=== PATIENT | male | born 1960 | race Hispanic/Latino ===

== ENCOUNTER 2019-10-02 00:45 | Emergency (ER) | payer MEDICAID, SELFPAY ==
[2019-10-02 00:48] VITALS: BP 144/86; PULSE 86; RESP 20; TEMP 36.3; O2SAT 97
--- NOTE | 2019-10-02 00:49 | ED_ITS ---
I attest that this documentation has been prepared under the direction and in the presence of Mike Paula MD. Miri Cagle, Lorenzaibtamiko 10/02/19;00:56 HPI - Wound/Laceration General Chief Complaint: Wound/Laceration Stated Complaint: R 5th digit lac Time Seen by Provider: 10/02/19 00:48 Source: patient Mode of arrival: ambulatory Limitations: no limitations History of Present Illness HPI narrative: A 59 y/o male presents to the ED with c/o a laceration to his right 5th finger. 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 Pt has bandaged the area but has been unable to stop the bleeding. Pt is unsure if his tetanus immunization is UTD. He denies numbness/tingling and being on a blood thinner. Extremity Location: Right: hand (fifth finger) Context: accidental Treatments prior to arrival: bandage Related Data Allergies Allergy/AdvReac Type Severity Reaction Status Date / Time No Known Allergies Allergy Verified 10/02/19 00:54 Review of Systems Review of Systems: All systems reviewed & are unremarkable except as noted in HPI and below Musculoskeletal: Comments: Reports: laceration to right fifth finger with bleeding Neurologic: Comments: Denies: numbness/tingling PMFSH Past Medical History Medical History Cancer of right kidney Kidney stone Rib fracture Surgical History Surgical History H/O right nephrectomy Social History Social History (Updated 10/02/19 @ 00:55 by Miri Cagle) Smoking status: Never smoker Comments PCP: Dr. Blackwell Exam Const: General: no acute distress and alert Orientation/consciousness: patient oriented x3 HENMT: Head: normal to inspection Resp: Effort & Inspection: normal respiratory effort Skin: Other: 2 cm partial skin avusion to right 5th finger. Bleeding controlled Neuro: General: patient oriented x3 and moves all extremities Speech: normal speech Course Vital Signs Vital signs: Vital Signs Temperature 36.3 C L 10/02/19 00:48 Pulse Rate 86 10/02/19 00:48 Respiratory Rate 20 10/02/19 00:48 Blood Pressure 144/86 H 10/02/19 00:48 Pulse Oximetry 97 10/02/19 00:48 Temperature 36.3 C L 10/02/19 00:48 Pulse Rate 86 10/02/19 00:48 Respiratory Rate 20 10/02/19 00:48 Blood Pressure 144/86 H 10/02/19 00:48 Pulse Oximetry 97 10/02/19 00:48 MDM - Wound/Laceration MDM Narrative Medical decision making narrative: Bleeding controlled. CUt is very superficial. No benefit to sutures. We will apply a pressure dressing. Unknown last tetanus we will update his tetanus shot. Differential Diagnosis Differential diagnosis: Likely avulsion of skin Medical Records Attestation: I reviewed the patient's medical records. Discharge Plan Discharge Clinical Impression: Avulsion of skin Patient Disposition: Home, Self-Care Condition: Stable Instructions: Skin Avulsion (ED) Follow-up/Referrals: Andrew Blackwell MD [Primary Care Provider] - I personally performed the services described in this documentation
[2019-10-02] MEDS: TETANUS,DIPHTHERIA,AC PERTUSSIS ADULT 0.5 ML (ADACEL) IM (01:09)
== END 2019-10-02 01:14 | disposition home or self-care (01) ==
PROVIDERS: Emergency Provider Emergency Medicine; PCP Family Medicine Adolescent Medicine
DX: S61.216A Laceration without foreign body of right little finger without damage to nail, initial encounter (principal); Z85.528 Personal history of other malignant neoplasm of kidney; Z90.5 Acquired absence of kidney; Z87.442 Personal history of urinary calculi; Z23 Encounter for immunization; W27.4XXA Contact with kitchen utensil, initial encounter
CPT/HCPCS: 90471; 90715; 99282

== ENCOUNTER 2020-05-10 08:15 | Outpatient (RCR) | payer OTHER, SELFPAY ==
--- NOTE | 2020-02-12 10:13 | PTOPEVAL ---
PHYSICAL THERAPY EVALUATION AND PLAN OF CARE Thank you for referring Carlos Orantes to [facility]. I recommend Carlos participate in PT 1-2x/week for 4-6weeks. Please review, sign, date and return this plan of care ZULEIKA. I agree with and certify that the following plan of care is medically necessary. Referring Physician Date Attending Provider: Andrew Blackwell MD Evaluation Outpatient Past Medical History Genitourinary History Hx Kidney Stones Yes Hx Nephrectomy Yes Musculoskeletal History Hx Back Pain Yes Other History Hx Cancer Yes: kidney Diagnosis low back pain, chronic Subjective Information reports multiple herniated Query Text:As Reported By Patient/ discs, no significant care Family provided up until now. Reports a dull pain that he uses heat on. Reports that several years ago his right thigh went numb and he was provided with steroids which helped. Reports an episode in which he was leaning backwards and his back started to spasm. He used ibuprofen, essential oils, and bengay which all seemed to help. He is feeling pretty good today but he is nervous about causing increased pain. 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 Pain Assessment Timing of Pain Assessment Timing of Pain Assessment Assessment Pain Scale Pain Scale Used Numeric (1 - 10) Self Report Pain Assessment Lower Spine, Lumbar Reported Pain Level 6 Pain Description Aching Pain Frequency Chronic,Continuous Lowest Pain Intensity 4 Greatest Pain Intensity 8 Pain Aggravating Factors Bending,Lifting,Walking,Weight Bearing/Standing Pain Behaviors None Pain Score Pain Score 6: Self Report Cervical and Lumbar ROM Lumbar ROM Lumbar Flexion (0-90) 45 Query Text:Active in Degrees Lumbar Extension (0-40) 8 Query Text:Active in Degrees Lateral Rotation Right (0-45) 30 Query Text:Active in Degrees Lateral Rotation Left (0-45) 30 Query Text:Active in Degrees Lumbar Comments extension and right rotation illicit pain Lower Extremity Range of Motion General Lower
--- NOTE | 2020-02-22 16:44 | PCPTNOTE ---
Patient called & cancelled scheduled appointment for tomorrow as he had to work.
--- NOTE | 2020-03-10 08:28 | PCPTNOTE ---
Patient did not show up for scheduled appointment this date.
--- NOTE | 2020-03-15 08:00 | PCPTNOTE ---
Patient did not show up for scheduled appointment this date.
--- NOTE | 2020-03-29 08:13 | PTOPEVAL ---
PHYSICAL THERAPY PLAN OF CARE UPDATE AND PROGRESS REPORT Thank you for referring Carlos Orantes to [facility].? The patient is scheduled to be seen for therapy? 22x/week for 3weeks. I agree with and certify that the following plan of care is medically necessary. 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 Nothing new to report. Reports that upper back is better, but lower back is stiff today. Self Report Pain Assessment Lower Spine, Lumbar Reported Pain Level 4 Pain Description Aching Pain Frequency Chronic,Continuous Pain Aggravating Factors Bending,Lifting,Walking,Weight Bearing/Standing Pain Behaviors None Cervical and Lumbar ROM Lumbar ROM Lumbar Flexion (0-90) 60 Query Text:Active in Degrees Lumbar Extension (0-40) 13 Query Text:Active in Degrees Lateral Rotation Right (0-45) 35 Query Text:Active in Degrees Lateral Rotation Left (0-45) 35 Query Text:Active in Degrees Lumbar Comments extension and right rotation illicit pain Cervical and Lumbar Muscle Testing Lumbar Strength Upper Abdominal Strength 3-Fair- Lower Abdominal Strength 3-Fair- Lower Back Extension 3+Fair+ Lower Extremity Muscle Strength Testing Hip Strength Bilateral Hip Flexion Strength 5 Normal Hip Extension Strength 4- Good - Hip Abduction Strength 4- Good - Palpation right QL : mild tightness and tenderness noted to right QL; left gluteus medius: moderate trigger points noted spinal mobility: severe decrease in lumbar spine mobility; improved lower thoracic mobility; continues to have positive instability test of lumbar spine Special Test-Spine Lumbar Spine Special Tests Crossed Straight Leg Raise Test Negative Right,Negative Left Straight Leg Raise Test Negative Right,Negative Left Prone Instability Spinal Test Positive Right,Positive Left PT Clinical Summary Carlos is a 59 yo male participating in outpatient
--- NOTE | 2020-04-20 07:35 | PCPTNOTE ---
Extend POC out until 05/10/2020. Scheduling conflicts have limited patient appointments.
--- NOTE | 2020-05-05 17:24 | PCPTNOTE ---
Patient did not show up for scheduled appointment this date. Called and left message of next appointment time.
--- NOTE | 2020-05-10 09:06 | PTOPEVAL ---
PHYSICAL THERAPY PLAN OF CARE UPDATE AND PROGRESS REPORT Thank you for referring Carlos Orantes to [facility].? The patient is scheduled to be seen for therapy?1x/week for 4 weeks. Please review, sign, date and return this plan of care ZULEIKA. I agree with and certify that the following plan of care is medically necessary. Referring Physician Date Attending Provider: Andrew Blackwell MD Progress Diagnosis low back pain, chronic Subjective Information Reports overall feeling Query Text:As Reported By Patient/ improved symptoms. Does Family continue to have fluctuating symptoms of lower back that can be severe. Continues to have goal of feeling better overall and learning how to manage symptoms. He is not consistent with HEP yet. Self Report Pain Assessment Lower Spine, Lumbar Reported Pain Level 2 Pain Description Aching Pain Frequency Chronic,Continuous Pain Aggravating Factors Bending,Lifting,Walking,Weight Bearing/Standing Pain Behaviors None Pain Score Pain Score 2: Self Report Additional Pain Score Comments upper back is doing much better Cervical and Lumbar ROM Lumbar ROM Lumbar Flexion (0-90) 60 Query Text:Active in Degrees Lumbar Extension (0-40) 15 Query Text:Active in Degrees Lateral Rotation Right (0-45) 35 Query Text:Active in Degrees Lateral Rotation Left (0-45) 35 Query Text:Active in Degrees Lumbar Comments no pain reported this morning Lower Extremity Muscle Strength Testing Hip Strength Bilateral Hip Flexion Strength 5 Normal Hip Extension Strength 4+ Good + Hip Abduction Strength 4+ Good + Knee Strength Bilateral Knee Flexion Strength 5 Normal Knee Extension Strength 5 Normal Muscle Length Testing Muscle Length Testing Piriformis w/Hip Flexion >90 Degrees (R) Moderate Tightness,(L) Moderate Tightness Left Hamstring Length -35 Query Text:(90 - 90 Position) Right Hamstring Length -35 Query Text:(90 - 90 Position) Palpation Assessment Palpation Palpation right QL : mild tightness and tenderness noted to right QL; spinal mobility: moderate decrease in lumbar spine mobility; improved lower thoracic mobility Special Test-Spine Lumbar Spine Special Tests Prone Instability Spinal Test Negative Ri
--- NOTE | 2020-05-31 08:32 | PCPTNOTE ---
PHYSICAL THERAPY DISCHARGE Attending Provider: Andrew Blackwell MD Patient:Carlos Orantes Date of :1960 Patient has not returned for any further treatments since 05/10/2020, therefore (he/she) will be discharged at this time. Patient?s initial visit was on 02/12/2020 had a total of 9 visits. The goals have been partially met. Thank you for referring this patient to [facility]. Please review, sign, date and return this discharge summary ZULEIKA. I have been updated about the patient's current status and I agree with discharge from the above service at this time. Referring Physician Date
== END 2020-05-12 23:59 | disposition home or self-care (01) ==
LOC: ANHPT 08:15
PROVIDERS: PCP Family Medicine Adolescent Medicine; Visit Provider Family Medicine Adolescent Medicine
DX: M54.5 Low back pain (principal)
CPT/HCPCS: 97110; 97140; 97161

== ENCOUNTER 2020-10-19 12:30 | Outpatient (RCR) | payer OTHER, SELFPAY ==
--- NOTE | 2020-08-09 15:59 | PTOPEVAL ---
PHYSICAL THERAPY EVALUATION AND PLAN OF CARE Thank you for referring Carlos Orantes to [facility].? The patient is scheduled to be seen for therapy? 2x/week for 5-8 weeks. Please review, sign, date and return this plan of care ZULEIKA. I agree with and certify that the following plan of care is medically necessary. Referring Physician Date Attending Provider: Andrew Blackwell MD Evaluation Diagnosis upper back pain Onset chronic Subjective Information Carlos was here in the fall for Query Text:As Reported By Patient/ the same symptoms. He Family participated in therapy at that time and was independent with HEP and was therefore discharged. His doctor has sent a new order for physical therapy to continue for the same diagnosis. States that since he was here he uses his foam roll to stretch and he uses a mechanical massager from low back to neck. 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 He is occasionally doing cable ferryboat operator work, but is mostly doing house work and cleaning and house projects. Worst days include lower back pain. Upper back is not as much as pain, but it does involve function. His upper back will mostly start hurting when standing still for long periods of time. Self Report Pain Assessment Spine, Thoracic Reported Pain Level 3 Pain Description Tightness Pain Frequency Chronic,Continuous Greatest Pain Intensity 7 Pain Score Pain Score 3: Self Report Interventions Used Interventions Used By Clinicians Exercise Pain Relief Interventions Used By Exercise,Ice,Inactivity/Rest, Patient Massage Modalities Cervical and Lumbar ROM Lumbar ROM Lumbar Flexion Active Ankle Query Text:Hands to: Lumbar Extension (0-40) 14 Query Text:Active in Degrees Lumbar Lateral Flexion Right (0-40) 20 Query Text:Active in Degrees Lumbar Lateral Flexion Left (0-40) 20 Query Text:Active in Degrees Lateral Rotation Right (0-45) 25 Query Text:Active in Degrees Lateral Rotation Left (0-45) 25 Query Text:Active in Degrees Upper Extremity Range of Motion General Upper Extrem
--- NOTE | 2020-08-30 09:30 | PCPTNOTE ---
Patient called & cancelled scheduled appointment this date due to getting testing for COVID.
--- NOTE | 2020-09-13 09:29 | PCPTNOTE ---
Patient called & cancelled scheduled appointment this date due to weather issues.
--- NOTE | 2020-09-23 10:32 | PTOPEVAL ---
PHYSICAL THERAPY RE-ASSESSMENT Thank you for referring Carlos Orantes to [facility].? The patient was re-assessed and further therapy is indicated. The patient is scheduled to continue therapy? 1 x/week for 4 more weeks. Please review, sign, date and return this plan of care ZULEIKA. I agree with and certify that the following plan of care is medically necessary. Referring Physician Date Referring Provider: Andrew Blackwell MD *PT Outpatient Progress Report Start: 08/09/20 14:53 Freq: Status: Active Protocol: Document 09/21/20 14:45 MLV (Rec: 09/23/20 08:02 MLV [email or web address]) Assessment Status Progress Evaluation Information Problem Diagnosis upper back pain Onset chronic Subjective Information Patient reports improvement in Query Text:As Reported By Patient/ his pain since eval and Family understands that stretching helps improve his state. Patient has been doing his exercises 1x a day and reports getting relief of pain. Patient reports pain is mostly at his mid back and standing/ walking slowly will aggravate the pain. 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 The patient feels he would benefit from continued therapy for further stretching and education for home exercises; feels he was set back from being on hold for 2-3 weeks due to COVID quarantine requirements. The pateint missed the last 3 visits due to quarantine issues. Pain Assessment Timing of Pain Assessment Timing of Pain Assessment Assessment Pain Scale Pain Scale Used Numeric (1 - 10) Self Report Pain Assessment Spine, Thoracic Reported Pain Level 4 Pain Description Tightness Pain Frequency Chronic,Continuous Pain Score Pain Score 4: Self Report Interventions Used Interventions Used By Clinicians Exercise Pain Relief Interventions Used By Exercise,Ice,Inactivity/Rest Patient Cervical and Lumbar ROM Lumbar ROM Lumbar Extension (0-40) 20 Query Text:Active in Degrees Lumbar Lateral Flexion Right (0-40) 30 Query Text:Active in Degrees Shayy
--- NOTE | 2020-10-19 13:15 | PTOPEVAL ---
PHYSICAL THERAPY DISCHARGE Thank you for referring Carlos Orantes to [facility].? The patient has been seen for therapy?8 visits for dx of mid/low back pain. The patient has partially met goals and skilled PT needs have peaked. DC PT. Please review, sign, date and return this plan of care. I agree with and certify the following plan of care. Referring Physician Date Referring Provider: Andrew Blackwell MD *PT Outpatient Discharge Start: 08/09/20 14:53 Freq: Status: Active Protocol: Document 10/19/20 12:33 MLV (Rec: 10/19/20 13:14 MLV [id number]) Assessment Status Discharge Evaluation Information Problem Diagnosis upper back pain Onset chronic Additional Evaluation Detail Patient feels his upper back is better and the stretching and posture correction has helped improve his symptoms. The low back remains with chronic pain/tightness off and on. Patient feels his exercises work well for him and can continue on his own. Pt plans to follow up with MD in a couple weeks. Patient doesn't have trouble sleeping due to pain. Pain Assessment Timing of Pain Assessment Timing of Pain Assessment Assessment Pain Scale Pain Scale Used Numeric (1 - 10) Self Report Pain Assessment Spine, Thoracic Reported Pain Level 4 Pain Description Tightness Pain Frequency Chronic Pain Score Pain Score 4: Self Report Interventions Used Interventions Used By Clinicians Education,Exercise,Heat Pain Relief Interventions Used By Exercise,Heat,Inactivity/Rest Patient Cervical and Lumbar ROM Lumbar ROM Lumbar Lateral Flexion Right (0-40) 30 Query Text:Active in Degrees Lumbar Lateral Flexion Left (0-40) 30 Query Text:Active in Degrees Lateral Rotation Right (0-45) 45 Query Text:Active in Degrees Lateral Rotation Left (0-45) 45 Query Text:Active in Degrees Cervical and Lumbar Muscle Testing Lumbar Strength Upper Abdominal Strength 3+Fair+ Lower Abdominal Strength 3+Fair+ Muscle Length Testing Muscle Length Testing Latissmus Dorsi Muscle Length (R) Mild Tightness,(L) Mild Tightness Upper Trapezius Muscle Length (L) Mild Tightness,(R) Moderate Tightness Levaetor Scapulae Muscle Length (R) Mild Tightness,(L) Mild Tightness Shoulder Int
== END 2020-10-20 08:42 | disposition home or self-care (01) ==
LOC: ANHPT 12:30
PROVIDERS: PCP Family Medicine Adolescent Medicine; Referring Provider Family Medicine Adolescent Medicine; Visit Provider Family Medicine Adolescent Medicine
DX: M54.5 Low back pain (principal)
CPT/HCPCS: 97110; 97140; 97161

== ENCOUNTER 2020-11-14 13:46 | Outpatient (CLI) | payer OTHER, SELFPAY ==
--- NOTE | ~2020-11-14 | CT_ITS ---
EXAMINATION: CT sinus wo con DATE: 11/14/2020 13:58 INDICATION: Postnasal drip TECHNIQUE: Computed tomography (CT) of the paranasal sinuses was performed without contrast. Iterativ e reconstruction technique was employed. Exam dose: 291.45 mGy-cm total exam DLP. COMPARISON: None FINDINGS: There are areas of mild leftward and rightward deviation of the nasal septum. The nasal turbinates are prominent in size bilaterally. There is intralamellar cell of both middle nasal turbinates, greater on the right. The ostiomeatal units are patent. There are small focal areas of mucosal periosteal thickening or small mucous retention cysts of each maxillary sinus. There is minimal mucoperiosteal thickening of the frontal sinuses. The sphenoid sinu ses are clear. The mastoid air cells are normally developed and aerated. IMPRESSION: There are focal areas of minimal mucoperiosteal thickening of the frontal sinuses and ma xillary sinuses, occasional maxillary sinus mucus retention cyst Intralamellar cell of both middle nasal turbinates Bilateral prominent soft tissue thickening of the nasal turbinates Reviewed, dictated and finalized at [facility]. Reviewed, dictated and finalized at [facility]. IMPRESSION: There are focal areas of minimal mucoperiosteal thickening of the frontal sinuses and maxillary sinuses, occasional maxillary sinus mucus retenti on cyst Intralamellar cell of both middle nasal turbinates Bilateral prominent soft tissue thickening of the nasal turbinates
== END 2020-11-14 13:47 | disposition home or self-care (01) ==
LOC: ANHIMG 13:47
PROVIDERS: PCP Family Medicine Adolescent Medicine; Visit Provider Otolaryngology
DX: J32.9 Chronic sinusitis, unspecified (principal); J34.89 Other specified disorders of nose and nasal sinuses; R09.81 Nasal congestion; R09.82 Postnasal drip; R44.8 Other symptoms and signs involving general sensations and perceptions; R48.1 Agnosia
CPT/HCPCS: 70486

== ENCOUNTER 2023-04-24 09:15 | Outpatient (RCR) | payer OTHER, SELFPAY ==
--- NOTE | 2023-03-20 10:23 | PTOPEVAL1 ---
Assessment and note entered by Zaki Mayen Evaluation Information Assessment Status Evaluation Diagnosis dorsalgia, pain in right hip Onset 03/20/22 Subjective Information Pt. reports that about 1 year ago he started walking regularly with his girlfriend. He intially started to develop right groin pain. He did anti-inflammatories and pain was reduced. He reports that he continued to walk and recently noticed back pain with a dull ache described in the right thigh. He reports that he has recently noticed that his right thigh has become numb. He reports that he is currently taking oxycodone for pain. He states that he is only using pain meds 2x /week. He reports that he will also take ibuprofen, but has hx of nephrectomy so is apprehensive to meds. He states that pain is present with prolonged standing and sitting. he notices increased pain also with initially getting out of bed. He has had xray of the hip which was negative. He states that he has issues with his bladder and holding urine, but his doctor is aware and takes medication in those regards. He states that he is not falling because of the pain. He reports that he has not had an MRI. He reports that he has no difficulty with sleeping at night. He reports that his goal is to decrease his low back pain. Reported Pain Level Pain Score 3: Self Report Assessment PT Clinical Summary Pt. is a 62 year old male who enters the clinic with low back pain. He presents with impaired flexibility, impaired postural awareness, lower extremity weakness, pain and functional decline. Continued skilled PT is indicated in order to improve these areas to allow the pt. to be able to complete all IADL's with improved comfort and efficiency. Plan of Care Interventions Electrical Stimulation,Hot Pack/Cold Pack,Manual Therapy,Mechanical Traction,Neuro Re-education, Patient/Caregiver Educati,Therapeutic Activities, Therapeutic Exercise PT Services Indicated Yes Treatment Frequency and 2x/week x 10 visits Duration These treatments will address the objective and functional deficits as defined above. The patient will be advanced safely and appropriately in order for the patient to progress towards his/her prior level of function. Additional exercises will be introduced and as well as a comprehensive home exercise program upon discharge, if
--- NOTE | 2023-03-20 10:24 | OPREHPOC ---
Outpatient Therapy Plan of Care This is a Multidisciplinary Plan of Care that may contain components documented by all disciplines (PT, OT, and ST.) PT Problem 1 PT Problem #1 Knowledge Deficit PT Goal 1 Goal Pt. will be independent with a HEP addressing trunk mobility and core strength. Target Visit 2 PT Problem 2 PT Problem #2 Impaired Flexibility PT Goal 1 Goal Pt. will present at 10 degrees from full knee extension on both right and left with the 90/90 test. Target Visit 10 PT Problem 3 PT Problem #3 Impaired Range of Motion PT Goal 1 Goal Pt. will safely reach to the floor demonstrating improved lumbar mobility. Target Visit 5 PT Goal 2 Goal Pt. will be able to safely lift 10-20# object for 10 reps from floor to waist with proper body mechanics. Target Visit 10 PT Problem 4 PT Problem #4 Impaired Strength PT Goal 1 Goal Pt. will improve gross proximal l.e. strength to 5 /5 in order to improve lumbar and pelvic stability with prolonged standing activities. Target Visit 10 PT Problem 5 PT Problem #5 Pain PT Goal 1 Goal Pt. will report pain levels at 5/10 at worst with prolonged standing activities. Target Visit 10
--- NOTE | 2023-04-04 11:03 | PCPTNOTE ---
Pt. canceled 04/04/23 appointment stating that he just would not be able to make it to therapy today.
--- NOTE | 2023-04-18 08:48 | PCPTNOTE ---
Pt. called right before appointment and noted that he would not be able to make it to his appointment on 04/18/23.
--- NOTE | 2023-04-24 10:14 | PTOPDC ---
Assessment and note entered by Zaki Mayen Evaluation Information Assessment Status Discharge Diagnosis dorsalgia, pain in the right hip Onset 03/20/22 Subjective Information Pt. reports that he has noticed little change in his pain levels. He describes current pain in the area of the right groin at 3/10. He states that pain has been an 8/10 at worst in the past week. He states that pain continues to fluctuate and can increase when his activity level increases. He reports that he has had recent episodes of being unable to sleep due to pain in the described right groin and thight. He currently has no follow up with his doctor scheduled. Reported Pain Level Pain Score 3: Self Report Assessment PT Clinical Summary Pt. has demonstrated improvements in strength and trunk mobility. Despite these improvements he continues to provide consistent pain reports. Pt. has presentation consistent with both hip and lumbar pathology. Encouraged the pt. to continue with exercise program focused on flexibility and core stability. At this time pt. states he will contact his doctor regarding follow up. Consider imaging of the lumbar region and may consider interarticular injection to the right hip to assist in determining if the pathology is coming from the hip or lumbar region. He will be discharged from our care at this time. Plan of Care PT Services Indicated D/C from PT and follow up with his doctor regarding remaining pain.
== END 2023-04-24 13:49 | disposition home or self-care (01) ==
LOC: ANHPT 09:15
PROVIDERS: PCP Family Medicine Adolescent Medicine; Visit Provider Orthopaedic Surgery
DX: M25.551 Pain in right hip (principal); M54.9 Dorsalgia, unspecified
CPT/HCPCS: 97110; 97112; 97140; 97161; 97530

== ENCOUNTER 2023-04-29 11:52 | Outpatient (CLI) | payer OTHER, SELFPAY ==
--- NOTE | ~2023-04-29 | XR_ITS ---
EXAMINATION: XR chest 2V Exam Date/Time: 04/29/2023 12:10 CDT HISTORY: Dyspnea on exertion X 2 MOS NO PRIOR RELATED HX Comparison: . RESULT: Lines, tubes, and devices: Cholecystectomy clips. Lungs and pleura: Clear. Cardiomediastinal silhouette: Stable. Other: No acute osseous or upper abdominal finding. IMPRESSION: No acute cardiopulmonary process. Reviewed, dictated and finalized at location K.
== END 2023-04-29 11:53 | disposition home or self-care (01) ==
PROVIDERS: PCP Family Medicine Adolescent Medicine; Visit Provider Family Medicine Adolescent Medicine
DX: R06.00 Dyspnea, unspecified (principal)
CPT/HCPCS: 71046

== ENCOUNTER 2023-05-20 16:45 | Outpatient (CLI) | payer OTHER, SELFPAY ==
--- NOTE | ~2023-05-20 | MR_ITS ---
MRI of the lumbar spine Clinical History: Radiculopathy Technique: Axial T2-weighted images, and sagittal T1-weighted, T2-weighted, and T2 fat-sat images wer e acquired. COMPARISON: 11/24/2017 Findings: There is no acute fracture or subluxation the lumbar spine. Vertebral bodies maintain isabela l height and alignment. No suspicious bone marrow signal abnormality seen. At L1-L2, there is minimal disc bulge with tiny annular fissure. There is mild facet arthropathy. No estee central canal stenosis. Bilateral neural foramina are preserved. At L2-L3, there is diffuse disc bulge with mild to moderate facet arthropathy. No estee central canal stenosis. Bilateral neural foramina are preserved. L3-L4, there is minimal disc bulge with mild to moderate facet arthropathy. No estee central canal st enosis. There is moderate right neural foraminal narrowing. Left neural foramen preserved. At L4-L5, there is diffuse disc bulge with moderate facet arthropathy. No estee central canal stenosi s. There is mild bilateral neural foraminal narrowing. At L5-S1, there is no disc bulge or herniation. There is moderate facet arthropathy. No central canal stenosis or neural foraminal narrowing. Paravertebral soft tissues are unremarkable. Impression: [id number] degenerative spondylosis, as detailed above. Reviewed, dictated and finalized at [facility]. Impression: [id number] degenerative spondylosis, as detailed above.
== END 2023-05-20 16:46 | disposition home or self-care (01) ==
PROVIDERS: PCP Family Medicine Adolescent Medicine; Visit Provider Orthopaedic Surgery
DX: M47.26 Other spondylosis with radiculopathy, lumbar region (principal)
CPT/HCPCS: 72148

== ENCOUNTER 2023-06-03 08:25 | Outpatient (CLI) | payer OTHER, SELFPAY ==
--- NOTE | 2023-06-03 13:21 | P.PCNPFT_ITS ---
PFT Procedure Performed PFT Procedure Performed Plethysmography (Lung Vol) Diffusing Cap (DLCO) Flow Vol Loop Spirometry w/o Bronchodil PFT Interpretation This is a pulmonary function test with spirometry, plethysmography and diffusing capacity. The test was performed and results interpreted in accordance with the 2019 and 2005 ATS/ERS Task Force guidelines respectively using the Global Lung Function Initiative-2012 reference equations. Patient demonstrated good effort and cooperation. Reproducibility criteria were met. The quality of the spirometry maneuver was Grade A. Findings: Spirometry: The contour the inspiratory and expiratory flow tracing are normal. The FVC is 5.19 L, 129% predicted. The FEV1 is 3.74 L, 117% predicted. The FEV1: FVC ratio 72%. Plethysmography: The total lung capacity is 7.17 L, 102% predicted. The functional residual capacity is 2.78 L, 76% predicted. The residual volume is 1.98 L, 86% predicted. Diffusing capacity: The diffusing capacity unadjusted for hemoglobin and carboxyhemoglobin is 22.4, 81% predicted. The diffusing capacity adjusted for a lveolar volume is 2.76, 66% predicted. Impression: The spirometry is normal without evidence of an obstructive abnormality. The lung volumes are normal. The diffusing capacity unadjusted for hemoglobin and carboxyhemoglobin is normal and mildly decreased when adjusted for alveolar volume. There are no prior studies for comparison
== END 2023-06-03 08:26 | disposition home or self-care (01) ==
LOC: ANHPFT 08:26
PROVIDERS: PCP Family Medicine Adolescent Medicine; Visit Provider Family Medicine Adolescent Medicine
DX: R06.00 Dyspnea, unspecified (principal)
CPT/HCPCS: 94375; 94726; 94729

== ENCOUNTER 2023-09-26 11:23 | Outpatient (CLI) | payer OTHER, SELFPAY ==
--- NOTE | ~2023-09-26 | XR_ITS ---
Right Knee Technique: AP, lateral, and sunrise views were obtained. Clinical History: Pain Findings: No fracture or dislocation is seen. Osseous alignment is anatomic. Joint spaces are preserv ed without degenerative or erosive change. Soft tissues are unremarkable. No joint effusion is seen. Impression: Unremarkable right knee radiographs. Reviewed, dictated and finalized at location . 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
--- NOTE | ~2023-09-26 | XR_ITS ---
Clinical Indication: Dyspnea PA and lateral views of the chest: Comparison: 04/29/2023 Findings: There is hazy left basilar airspace disease. Right lung clear. Cardiomediastinal silhouett e is within normal limits. Bones and soft tissues are unremarkable. Impression: Left basilar atelectasis versus pneumonia. Correlate clinically. Reviewed, dictated and finalized at [facility]. 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 Correlate clinically.
== END 2023-09-26 11:24 | disposition home or self-care (01) ==
LOC: ANHIMG 11:27
PROVIDERS: PCP Family Medicine Adolescent Medicine; Visit Provider Family Medicine Adolescent Medicine
DX: R06.00 Dyspnea, unspecified (principal); M25.561 Pain in right knee; R91.8 Other nonspecific abnormal finding of lung field
CPT/HCPCS: 71046; 73562

== ENCOUNTER 2024-05-05 08:59 | Outpatient (CLI) | payer OTHER, SELFPAY ==
--- NOTE | 2024-05-05 09:02 | EST_ITS ---
Patient Info Name: Carlos Orantes Age: 63 years : 1960 Gender: Male Ht: 70 in Wt: 240 lbs BSA: 2.36 m2 HR: 65 bpm BP: 127 / 83 mmHg Heart Rhythm: Sinus Rhythm Exam Date: 05/05/2024 9:19 AM Exam Location: Echo Lab Patient Status: Outpatient Admit Date: 05/05/2024 Staff Ordering Physician: Andrew Blackwell MD Attending Provider: Andrew Blackwell MD Exercise Technologist: Tawnya Miller CT Exercise Physician: Christopher Lei DO Exam Type: CA stress test treadmill Study Info Indications R06.09 - Other forms of dyspnea A treadmill exercise stress test was performed. Summary 1. 1. Negative Frandy exercise stress test for ischemic ST changes by ECG criteria. 2. 2. Reduced functional capacity, achieving 7 METs of workload. 3. 3. Appropriate HR response to exercise. 4. 4. Appropriate HR recovery at 1 minute post exercise. 5. 5. No imaging with stress testing. 6. 6. Patient informed of the above results. Protocol: Frandy Stress ECG Details Stage: REST Duration (min): 1 min : 6 sec Speed (mph): 0.0 Grade (%): 0 HR (bpm): 62 SBP (mmHg): 127 DBP (mmHg): 83 METS: --- Stage: REST Duration (min): 15 min : 17 sec Speed (mph): 0.0 Grade (%): 0 HR (bpm): 78 SBP (mmHg): 127 DBP (mmHg): 83 METS: --- Stage: STAGE 1 Duration (min): 1 min : 0 sec Speed (mph): 1.7 Grade (%): 10 HR (bpm): 100 SBP (mmHg): 127 DBP (mmHg): 83 METS: --- Stage: STAGE 1 Duration (min): 2 min : 0 sec Speed (mph): 1.7 Grade (%): 10 HR (bpm): 109 SBP (mmHg): 127 DBP (mmHg): 83 METS: --- Stage: STAGE 1 Duration (min): 3 min : 0 sec Speed (mph): 1.7 Grade (%): 10 HR (bpm): 112 SBP (mmHg): 141 DBP (mmHg): 83 METS: --- Stage: STAGE 2 Duration (min): 1 min : 0 sec Speed (mph): 2.5 Grade (%): 12 HR (bpm): 118 SBP (mmHg): 141 DBP (mmHg): 83 METS: --- Stage: STAGE 2 Duration (min): 2 min : 0 sec Speed (mph): 2.5 Grade (%): 12 HR (bpm): 126 SBP (mmHg): 141 DBP (mmHg): 83 METS: --- Stage: STAGE 2 Duration (min): 2 min : 59 sec Speed (mph): 2.5 Grade (%): 12 HR (bpm): 134 SBP (mmHg): 141 DBP (mmHg): 83 METS: --- Stage: RECOVERY Duration (min): 1 min : 0 sec Speed (mph): 0.0 Grade (%): 0 HR (bpm): 121 SBP (mmHg): 141 DBP (mmHg): 83 METS: --- Stage: RECOVERY Duration (min): 2 min : 0 sec Speed (mph): 0.0 Grade (%): 0 HR (bpm): 96 SBP (mmHg): 141 DBP (mmHg): 83 METS: --- Stage: RECOVERY Duration (min): 2 min : 59 sec Speed (mph): 0.0 Grade (%): 0 HR (bpm): 76 SBP (mmHg): 188 DBP (mmHg): 94 METS: --- Rest HR: 78 bpm Peak HR: 134 bpm Rest Sys BP: 127 mmHg Peak Sys BP: 188 mmHg Max Pred HR: 156 bpm % Max Pred HR: 86 % Target HR: 133 bpm Max RPP: 25,192 bpm*mmHg Reyes Score: 1 Termination Reason: Reached target heart rate or workload Cardiac Symptoms: Shortness of breath Max ST Seg Deviation: 1.00 mm Total Time: 5 min : 5
== END 2024-05-05 09:00 | disposition home or self-care (01) ==
PROVIDERS: PCP Family Medicine Adolescent Medicine; Visit Provider Family Medicine Adolescent Medicine
DX: R06.09 Other forms of dyspnea (principal)
CPT/HCPCS: 93017

== ENCOUNTER 2025-07-07 10:24 | Outpatient (CLI) | payer MEDICARE, SELFPAY ==
--- NOTE | ~2025-07-07 | CT_ITS ---
EXAM/PROCEDURE: CT abdomen pelvis wo con HISTORY: History of right renal cell cancer COMPARISON: None available. TECHNIQUE: Noncontrast CT of the abdomen and pelvis FINDINGS: Patient status post right nephrectomy. In the surgical bed contiguous with surgical nayla is a 3.3 x 2.0 x 3.2 cm smoothly marginated multilobulated mass with partial calcifications along the periphery. No suspicious mass seen in the left kidney; there appears to be pelvic parapelvic cysts in left kidney. No hydroureteronephrosis. Urinary bladder and prostate with no obvious disease or mass. Moderate amount of stool extends to the cecum with advanced sigmoidal diverticular disease. No gross acute diverticulitis. No grossly inflamed appendix. No AAA or gross CT evidence of acute cholecystitis. Bones appear intact. Lung bases clear. Extraperitoneal soft tissues unremarkable. IMPRESSION: 1. Directed noncontrast exam demonstrating right nephrectomy surgical changes; 3.3 x 2.0 x 3.2 cm multilobulated mass in the surgical bed likely chronic and benign. Correlation with any previous post nephrectomy studies would be ideal. Otherwise follow-up CT exam in 6 months recommended or sooner if clinically appropriate. 2. Other findings as above. Reviewed, dictated and finalized at location A. 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 Directed noncontrast exam demonstrating right nephrectomy surgical changes; 3.3 x 2.0 x 3.2 cm multilobulated mass in the surgical bed likely chronic and b enign. Correlation with any previous post nephrectomy studies would be ideal. O therwise follow-up CT exam in 6 months recommended or sooner if clinically appr opriate. 2. Other findings as above.
== END 2025-07-07 10:25 | disposition home or self-care (01) ==
LOC: MICIMG 10:25
PROVIDERS: PCP Family Medicine Adolescent Medicine; Visit Provider Family Medicine Adolescent Medicine
DX: Z85.528 Personal history of other malignant neoplasm of kidney (principal)
CPT/HCPCS: 74176